=== PATIENT | male | born 1940 | race Caucasian/White ===

== ENCOUNTER 2017-03-10 16:36 | Inpatient (IN) | payer MEDICARE ==
[~2017-03-10] VITALS: Ht 185.4 cm; Wt 116.1 kg
[2017-03-10] VITALS (7 sets, daily range): BP systolic 128–150; BP diastolic 42–73
[~2017-03-10 16:36] MED LIST: ALDACTONE25 M1 PO; AMIODARONE200 MG PO; APRESOLINE25 MG PO; ASPIR-LOW81 MG PO; ASPIRIN81 M1 PO; BACTRIM DS 8001 TA1 PO; BUMETANIDE2 MG PO; BUMEX2 MG PO; CARVEDILOL12.5 MG PO; CEFEPIME2 GM/100 M IV; CIPRO500 MG PO; CLINDAMYCIN150 MG PO; COREG25 MG PO; COZAAR25 MG PO; DIGOXIN0.125 MG PO; DOXYCYCLINE100 M3 PO; Duoneb 3ML 3 MG/3 ML INH; FERROUS SULFAT324 M2 PO; FISH OIL1000 MG PO; FLAGYL500 MG PO; FORTAZ2 G1 IV; FUROSEMIDE20 MG PO; GLIPIZIDE XL10 M1 PO; GLIPIZIDE10 M2 PO; HUMALOG 751 UNIT/0.0 SC; HUMALOG MIX 75/23 ML SC; HUMALOG100 U/ML SC; HYDROCODONE BIT1 T11 PO; IMDUR ER30 MG PO; IMDUR SA30 MG PO; INVANZ1 GM/50 ML IV; IRON325 M1 PO; KEFTAB500 MG PO; LASIX40 MG PO; LEVAQUIN500 M2 PO; LEVEMIR100 U/ML SC; LEVOTHYROXIN0.088 M1 PO; LOMOTIL 0.025 M1 TA1 PO; LOMOTIL 0.025 M1 TAB PO; LOSARTAN POTASS25 MG PO; Lopressor25 MG PO; MASON25 MG PO; MERREM IV1 GM IV; MUCINEX ER600 MG PO; MYLICON,MYLANTA40 MG PO; NEURONTIN300 MG PO; NORCO 5-325 TA1 EACH PO; NOVALOG; NOVOLOG 70/30 M10 ML SC; NOVOLOG FLEX100 U/ML SC; NOVOLOG MI100 UNIT/1 SC; NOVOLOG MI100 UNIT/1 SQ; NOVOLOG MI100 UNIT/2 SQ; NOVOLOG1 UNIT/0.0 SL; OXYGEN NAS; PIPERACILLIN IV; PLAVIX75 M1 PO; PLAVIX75 MG PO; PRAVACHOL40 MG PO; PREDNISONE10 MG PO; PROTONIX40 MG PO; PULMICORT RESP0.5 MG INH; SILVADENE,SSD C50 GM T; SYNTHROID RP0.088 MG PO; Synthroid,Levo50 MCG PO; Synthroid,Levo88 MCG PO; TAZOBACTAM IV; VENTOLIN0.09 MG/AC INH; VITAMIN B12 PO; VITAMIN B121000 MC1 PO; VITAMIN D2400 IU PO; VITAMIN D31000 I1 PO; VITAMIN D50000 I1 PO; XARELTO STARTER20 MG PO; ZOFRAN ODT4 MG SL; ZOSYN 3.373.375 GM/5 IV; ZOSYN 50 ML50 ML IV
[2017-03-10 17:49] LABS: IRON 86 ug/dL (65-175)
[2017-03-10 17:51] LABS: IRON SATURATION 28 %; UIBC 218 ug/dL (110-410)
[2017-03-10] MEDS ORDERED: LINEZOLID600 MG PO (18:44)
[2017-03-10] MEDS ORDERED: PRAVACHOL40 MG PO (18:45)
[2017-03-10] MEDS ORDERED: SYMBICORT1 AE1 INH (18:46)
[2017-03-10] MEDS ORDERED: GLIPIZIDE ER10 M1 PO (18:57)
[2017-03-10 19:58] LABS: FERRITIN 172.5 ng/mL (22.0-322.0); FOLIC ACID 13.16 ng/mL (>5.38)
[2017-03-10] MEDS ORDERED: DUONEB 3 MG/3 ML3 M1 INH (23:11)
[2017-03-11] VITALS (9 sets, daily range): BP systolic 146–179; BP diastolic 63–81
[2017-03-11 00:56] LABS: CKMB 4.1 ng/ml (0.5-3.6); TROPONIN I 0.016 ng/ml (<0.045)
[2017-03-11 06:47] LABS: BASO % 0.3 % (0.0-1.0); EOS # 0.1 10*3/uL (0.0-0.4); EOS % 0.7 % (1.0-4.0); HEMATOCRIT 27.6 % (42.0-52.0); LYMPH # 0.9 10*3/uL (1.3-4.4); LYMPH % 9.2 % (27.0-41.0); MEAN CORPUSCULAR HGB CONC 33.7 g/dl (33.0-37.0); MEAN PLATELET VOLUME 9.8 fl (9.6-12.3); MONO # 1.1 10*3/uL (0.1-1.0); MONO % 10.6 % (3.0-9.0); NEUT # 7.9 10*3/uL (2.3-7.9); NEUT % 78.9 % (47.0-73.0); NUCLEATED RED BLOOD CELL 0.2 % (0.0-0.0); PLATELET COUNT AUTOMATED 178 10*3/uL (130-400); RED BLOOD COUNT 3.21 10*6/uL (4.50-5.90); WHITE BLOOD COUNT 10.1 10*3/uL (4.8-10.8)
[2017-03-11 06:50] LABS: HEMOGLOBIN 9.3 g/dl (14.0-18.0)
[2017-03-11 07:00] LABS: CKMB 3.2 ng/ml (0.5-3.6); CPK 59 U/L (39-308)
[2017-03-11 07:01] LABS: TROPONIN I < 0.015 ng/ml (<0.045)
[2017-03-11 07:29] LABS: ALBUMIN 3.1 gm/dl (3.1-4.5); BILIRUBIN, TOTAL 1.3 mg/dl (0.2-1.0); MAGNESIUM 2.3 mg/dL (1.5-2.1); PHOSPHOROUS 3.9 mg/dL (2.5-4.9); POTASSIUM 4.9 mmol/L (3.5-5.1)
[2017-03-11 07:31] LABS: INTERNATIONAL NORM RATIO 1.1 (2.0-3.5); PROTHROMBIN TIME 12.1 SECONDS (9.0-12.4)
[2017-03-11 07:36] LABS: FREE T4 1.05 ng/dl (0.76-1.46)
[2017-03-11 07:38] LABS: THYROID STIM HORMONE (HS) 4.9 uIU/ml (0.358-4.75)
[2017-03-11 07:42] LABS: VITAMIN D, 25-HYDROXY 22.2 ng/mL (30-100)
[2017-03-11 07:43] LABS: FOLIC ACID 9.72 ng/mL (>5.38)
[2017-03-11 12:12] LABS: CKMB 3.1 ng/ml (0.5-3.6)
[2017-03-11 12:16] LABS: TROPONIN I 0.016 ng/ml (<0.045)
[2017-03-11] MEDS ORDERED: D-1000 185 MG-11 TAB PO (12:53)
== END 2017-03-11 13:53 | disposition home or self-care (01) | DRG 291 ==
LOC: ED 16:36 → EDHOLD 17:29 → 5E 17:29
PROVIDERS: Emergency Medicine; Student in an Organized Health Care Education/Training Program
PROC: 30233N1 Transfusion of Nonautologous Red Blood Cells into Peripheral Vein, Percutaneous Approach (ICD-10-PCS; principal; 2017-03-10)
DX: I13.0 Hypertensive heart and chronic kidney disease with heart failure and stage 1 through stage 4 chronic kidney disease, or unspecified chronic kidney disease (principal); E43 Unspecified severe protein-calorie malnutrition; E11.22 Type 2 diabetes mellitus with diabetic chronic kidney disease; E11.51 Type 2 diabetes mellitus with diabetic peripheral angiopathy without gangrene; L97.909 Non-pressure chronic ulcer of unspecified part of unspecified lower leg with unspecified severity; D63.1 Anemia in chronic kidney disease; E11.622 Type 2 diabetes mellitus with other skin ulcer; N18.3 Chronic kidney disease, stage 3 (moderate); E78.5 Hyperlipidemia, unspecified; I50.9 Heart failure, unspecified; I25.10 Atherosclerotic heart disease of native coronary artery without angina pectoris; E03.9 Hypothyroidism, unspecified; K21.9 Gastro-esophageal reflux disease without esophagitis; J44.9 Chronic obstructive pulmonary disease, unspecified; Z86.718 Personal history of other venous thrombosis and embolism; Z68.33 Body mass index [BMI] 33.0-33.9, adult; Z95.1 Presence of aortocoronary bypass graft; Z95.818 Presence of other cardiac implants and grafts; Z87.891 Personal history of nicotine dependence; Z80.0 Family history of malignant neoplasm of digestive organs; Z82.49 Family history of ischemic heart disease and other diseases of the circulatory system; Z80.3 Family history of malignant neoplasm of breast; Z91.013 Allergy to seafood; Z91.041 Radiographic dye allergy status; Z88.7 Allergy status to serum and vaccine; Z79.899 Other long term (current) drug therapy; Z79.82 Long term (current) use of aspirin

== ENCOUNTER 2017-03-30 21:51 | Emergency (ER) | payer MEDICARE ==
[~2017-03-30] VITALS: Ht 182.8 cm; Wt 116.1 kg
--- NOTE | ~2017-03-30 | EKG ---
[place], [place] ELECTROCARDIOGRAM REPORT NAME: MARIN KRUGER UNIT #: [id number] ROOM: DOCTOR: COLETTE KHANNA MD BIRTHDATE: [birth year] DOS: 03/30/2017 TIME: 22:18 p.m. Normal sinus rhythm at rate of 88 with occasional PVCs, first-degree AV block, nonspecific intraventricular conduction delay, nonspecific ST and T-wave changes, abnormal electrocardiogram. COLETTE KHANNA MD CM:EKGRPT:ELECTROCARDIOGRAM REPORT [id number] COLETTE KHANNA MD
[2017-03-30 21:51] VITALS: BP 160/82
[~2017-03-30 21:51] MED LIST changes: +D-1000 185 MG-11 TAB PO; +DUONEB 3 MG/3 ML3 M1 INH; +GLIPIZIDE ER10 M1 PO; +LINEZOLID600 MG PO; +SYMBICORT1 AE1 INH
[2017-03-30 22:21] LABS: BASO # 0.1 10*3/uL (0.0-0.1); BASO % 0.8 % (0.0-1.0); EOS # 0.3 10*3/uL (0.0-0.4); EOS % 2.5 % (1.0-4.0); HEMATOCRIT 30.2 % (42.0-52.0); HEMOGLOBIN 9.5 g/dl (14.0-18.0); IG # 0.1 10*3/uL (0.0-0.1); LYMPH # 1.2 10*3/uL (1.3-4.4); LYMPH % 11.6 % (27.0-41.0); MEAN CELL VOLUME 88.6 fl (80.0-94.0); MEAN CORPUSCULAR HGB 27.9 pg (27.0-31.0); MEAN CORPUSCULAR HGB CONC 31.5 g/dl (33.0-37.0); MEAN PLATELET VOLUME 8.6 fl (9.6-12.3); MONO # 1.1 10*3/uL (0.1-1.0); MONO % 10.9 % (3.0-9.0); NEUT # 7.3 10*3/uL (2.3-7.9); NEUT % 73.7 % (47.0-73.0); PLATELET COUNT AUTOMATED 321 10*3/uL (130-400); RED BLOOD COUNT 3.41 10*6/uL (4.50-5.90); RED CELL DISTRI WIDTH 17.2 % (0-14.5)
[2017-03-30 22:38] LABS: ALBUMIN 3.2 gm/dl (3.1-4.5); BILIRUBIN, TOTAL 0.4 mg/dl (0.2-1.0); MAGNESIUM 2.1 mg/dL (1.5-2.1); POTASSIUM 4.4 mmol/L (3.5-5.1); TOTAL PROTEIN 7.8 gm/dL (6.4-8.2)
[2017-03-30 22:39] LABS: TROPONIN I 0.017 ng/ml (<0.045)
[2017-03-31] MEDS ORDERED: MIRALAX POWDER255 G1 PO (00:29)
== END 2017-03-31 00:59 | disposition home or self-care (01) ==
LOC: ED 21:51
PROVIDERS: Emergency Medicine Emergency Medical Services
DX: K59.00 Constipation, unspecified (principal); K80.81 Other cholelithiasis with obstruction; I25.10 Atherosclerotic heart disease of native coronary artery without angina pectoris; I73.9 Peripheral vascular disease, unspecified; I50.9 Heart failure, unspecified; K21.9 Gastro-esophageal reflux disease without esophagitis; E78.5 Hyperlipidemia, unspecified; Z86.718 Personal history of other venous thrombosis and embolism; E03.9 Hypothyroidism, unspecified; E11.65 Type 2 diabetes mellitus with hyperglycemia; I12.9 Hypertensive chronic kidney disease with stage 1 through stage 4 chronic kidney disease, or unspecified chronic kidney disease; N18.3 Chronic kidney disease, stage 3 (moderate); M86.671 Other chronic osteomyelitis, right ankle and foot; J44.9 Chronic obstructive pulmonary disease, unspecified; E11.622 Type 2 diabetes mellitus with other skin ulcer; L97.909 Non-pressure chronic ulcer of unspecified part of unspecified lower leg with unspecified severity; Z88.7 Allergy status to serum and vaccine; Z91.013 Allergy to seafood; Z79.899 Other long term (current) drug therapy; Z79.82 Long term (current) use of aspirin

== ENCOUNTER → 2017-10-29 | Outpatient (CLI) | payer MEDICARE ==
[~2017-10-29] MED LIST changes: +MIRALAX POWDER255 G1 PO
== END ==
LOC: RAD 12:29
DX: J90 Pleural effusion, not elsewhere classified (principal); E11.9 Type 2 diabetes mellitus without complications; J40 Bronchitis, not specified as acute or chronic; J44.9 Chronic obstructive pulmonary disease, unspecified; Z95.1 Presence of aortocoronary bypass graft

== ENCOUNTER 2017-12-01 11:19 | Inpatient (IN) | payer MEDICARE ==
[~2017-12-01] VITALS: Ht 185.4 cm; Wt 108.0 kg
--- NOTE | ~2017-12-01 | PR ---
[place], [place] PROGRESS NOTE NAME: [facility]IN [facility]UGER [id number] UNIT #: [id number] ROOM: 503 DOCTOR: DERICK AGEE DO BIRTHDATE: [birth year] DOS: 12/03/2017 SUBJECTIVE: The patient was seen and examined at bedside. The patient was sitting upright in bedside chair. The patient had some concerns this morning considering the new findings on CT that showed some possible air in the abdomen. Additionally the transthoracic echo yesterday indicated there was a possible endocarditis and that a GIANCARLO would be required by Cardiology at some point. The patient has concerns about his ability to recover from the multiple comorbid conditions that are going on. However, the patient remains enthusiastic that he is in good hands and that he will continue to improve. No new complaints this morning. The patient continues to be stable and has no complaint of worsening shortness of breath or productive cough. Also, the patient has no complaints of chest pain or fever or chills. OBJECTIVE: VITAL SIGNS: Temperature is 97.4, pulse is 94, respirations 20, blood pressure 131/68, pulse ox is 99% on 2 liters nasal cannula. LABS: White count 22.6, hemoglobin 7.9, hematocrit 25.1, platelets count 400. Sodium 133, potassium 5.3, chloride 102, carbon dioxide 20, BUN 70, creatinine 2.1, glucose is 261, calcium 8.3. GENERAL APPEARANCE: The patient is alert and oriented x 3, in no acute distress. HEENT: Eyes are clear. No injection. Normocephalic, atraumatic head mucous membranes. NECK: Supple, nontender. CARDIAC: S1, S2 noted. LUNGS: No rales. Scattered expiratory wheezes were noted. ABDOMEN: Soft, nontender, moderately obese. Bowel sounds are present. EXTREMITIES: The patient's right leg is in a boot. Otherwise, no lesions were noted. SKIN: No erythema or edema noted. Unable to visualize the diabetic wound in his right lower extremity. MUSCULOSKELETAL: Without any gross deformities. NEUROLOGIC: Cranial nerves are grossly intact. IMPRESSION: 1. High suspicion for endocarditis. Cardiology is following. GIANCARLO is recommended. 2. Chronic obstructive pulmonary disease with acute bronchitis, stable and improving. 3. Positive blood cultures, Gram-positive cocci. 4. Tobacco abuse. 5. Uncontrolled diabetes. 6. Obstructive sleep apnea. 7. Anemia. 8. Decreased kidney function, likely acute on chronic. TREATMENT AND PLAN: As stated above, GIANCARLO is recommended along with the CT of the abdomen to assess for free air. No change in current respiratory therapy. Continue the vancomycin, ampicillin, Rocephin, IV fluids, Dulera, Solu-Medrol, [place], [place] PROGRESS NOTE NAME: MARNI KRUGER UNIT #: [id number] ROOM: [facility] DOCTOR: DERICK AGEE DO BIRTHDATE: [birth year] Willy jarrett 4. We will continue to follow this patient. DERICK AGEE DO SREEDHAR CALLE MD CM:PNSUSAN [id number] DERICK AGEE DO 12/03/17 1352 interface
--- NOTE | ~2017-12-01 | PR ---
[place], [place] PROGRESS NOTE [facility]: [id number] UNIT #: [id number] ROOM: 503 DOCTOR: LUC SYED MD,SREEDHAR BIRTHDATE: [birth year] DOS: 12/04/2017 ADDENDUM The patient was seen independently today with qnhr-ss-mffs encounter, history was confirmed. Physical examination was performed. The assessment was personally completed for today's visit. All the labs available reviewed. The management and changes were personally done for patient as needed. Currently, the patient has been noted n.p.o. for this patient for the planned transesophageal echocardiogram to be done today to rule out endocarditis. Many blood culture, which were done, 7, 8, 9 and 10 were all noted abnormal with Gram-positive cocci in clusters and previous identification noted in some of the cultures as MRSA. The other identification remains in progress. The patient has been noted reduction in symptoms of shortness of breath. Denies symptoms of chest pain. Cough has been noted intermittently. Denies any symptoms of chest pain or any abdominal pain at the present time. OBJECTIVE: VITAL SIGNS: Reviewed for the patient was noted essentially normal temperature, respiratory rate 20, heart rate 91, blood pressure 132/65-137/65. Pulse oxygen saturation noted on 3 liters at 100% saturation. LUNGS: Noted with decreased breath sounds, scattered expiratory wheezing without any crackles. ABDOMEN: Soft, nontender. Mild to moderate obesity. EXTREMITY: Noted chronic changes as well. The blood culture as stated on , and for this patient were all noted positive with MRSA. LABORATORY DATA: CBC of 12/04/2017, WBC count 14.4, hemoglobin 7.6, hematocrit 26.4, platelet count was normal. The BMP on 12/04, BUN 84, creatinine 2.28, glucose 433. Sodium 129, potassium 6.9. IMPRESSION: 1. The patient who has been noted with endocarditis with MRSA, rule out vegetation further assessment for the patient to be done by the cardiology services. 2. The patient with mediastinal lymphadenopathy, significance unknown. There was no evidence of septic emboli noted on CT scan of the chest. CT scan of abdomen and pelvis yesterday did exclude any perforation of the hollow viscus as well. 3. Ongoing acute exacerbation of COPD. 4. Hyperglycemia related to corticosteroids. 5. Hyperglycemia. 6. Acute on chronic kidney injury would be considered multifactorial. PLAN OF TREATMENT: Dose of the corticosteroids at this time would be decreased that would also result in improvement in the hyperglycemia. Continuation of the bronchodilator with oxygen supplementation. Monitoring management for endocarditis per Infectious Disease human resource management instructor. Supportive care, other therapy, plan of management, proceed with the transesophageal echo to assess for possibility of endocarditis. Other usual care, plan of management [place], [place] PROGRESS NOTE NAME: MARIN KRUGER UNIT #: [id number] ROOM: [facility] DOCTOR: LUC SYED MD,SREEDHAR BIRTHDATE: [birth year] and care. Supportive therapy, other plan of management as well. The dose of Solu-Medrol has been changed for the patient to 40 mg to daily dose. Continue aggressively manage the patient's hyperglycemia with uncontrolled diabetes, which is as well. Continue other supportive therapy, plan of management depending on the echocardiogram results, additional management change from pulmonary standpoint could be done as necessary. SREEDHAR CALLE MD CM:CAMPBELL [id number] SREEDHAR SYED MD 12/04/17 1732 interface
--- NOTE | ~2017-12-01 | PR ---
[place], [place] PROGRESS NOTE NAME: [facility]IN KRUGER [facility] [id number] UNIT #: [id number] ROOM: [facility] DOCTOR: LUC SYED MD,SREEDHAR BIRTHDATE: [birth year] DOS: 12/05/2017 PULMONARY ADDENDUM PROGRESS NOTE SUBJECTIVE: The patient is seen today with [id number] encounter. History was confirmed from the patient personally. Physical examination performed. Assessment for this patient personally made and recommendation of change in treatment personally done for today's visit as well. The note done by the medical assistant prn was approved as well. The patient was noted, at this time, comfortable. He was planned for transfer to [facility] on further patient's request. However, the transfer has been delayed because of lack of services at this time available because of the inclement weather. The patient has been currently treated in the hospital for ongoing severe bacteremia. Transesophageal echocardiogram was completed for this patient that was essentially noted negative for endocarditis. OBJECTIVE: VITAL SIGNS: For the patient which were recorded this morning shows normal temperature, respiratory rate 18, heart rate 84, blood pressure 147/67. The pulse oxygen saturation on 2.5 liter nasal cannula 98% saturation. LUNGS: Noted without any wheeze or crackle at the present time. ABDOMEN: Soft, nontender. Moderate obesity. EXTREMITIES: Noted with significant edema. Skin changes were also noted. CENTRAL NERVOUS SYSTEM: Intact. MUSCULOSKELETAL: No deformities. LABORATORY DATA: CBC of the patient that was done this morning, WBC count 13.5, hemoglobin 8.1, hematocrit 25.5, platelet count 339,000, 97% segmented neutrophils. BMP of the patient this morning, glucose 645, BUN 90, creatinine 2.61. Sodium 126, potassium of 6.2, CO2 of 19. Blood culture from the of this month for the patient was noted with Gram-positive cocci in clusters in both aerobic bottles. The anaerobic bottle was noted without any abnormal growth. Vancomycin trough level for the patient noted at 25.2. IMPRESSION: 1. The patient has been currently noted with findings of acute exacerbation of chronic obstructive pulmonary disease, though which is improving gradually. 2. Severe hyperglycemia, worsened with the use of the corticosteroids as well. 3. Acute kidney injury. The patient has severe hyperkalemia and metabolic acidosis. 4. Elevation of anion gap for this patient with diabetic ketoacidosis suspected as well. 5. Bacteremia. Exact source for the patient is not clear, may be related originating from the skin as a possibility. There was no evidence of acute pneumonia. PLAN OF TREATMENT: Solu-Medrol at this time will be discontinued because of the absence of wheezing. The patient has been planned for transfer to the intensive care unit and will be started on insulin for diabetic ketoacidosis. The patient will require assessment by the Nephrology Service because of the current acute [place], [place] PROGRESS NOTE NAME: MARIN KRUGER UNIT #: [id number] ROOM: [facility] DOCTOR: LUC SYED MD,SREEDHAR BIRTHDATE: [birth year] kidney injury. Bronchodilator for the patient will be continued. If the patient does develop further significant wheezing, certainly, lower dose of Solu-Medrol could be resumed at that time. All other plan and medical management. The medical management of hyperkalemia has already been started by the primary care attending. Continuation of vancomycin with adjustment of the dose will be needed for this patient for the medical management of endocarditis. The patient has already been assessed and managed by the Infectious Disease Services as well. Continue oxygen supplementation to maintain a saturation of 92% or greater. SREEDHAR CALLE MD CM:PNTRANS [id number] SREEDHAR SYED MD 12/06/17 0023 interface
--- NOTE | ~2017-12-01 | PR ---
[place], [place] PROGRESS NOTE NAME: MARIN KRUGER [facility] #: [id number] UNIT #: [id number] ROOM: 503 DOCTOR: LUC SYED MD,SREEDHAR BIRTHDATE: [birth year] DOS: 12/03/2017 SUBJECTIVE: The patient was seen today independent with oagi-ny-toms encounter. History was confirmed. Physical examination was personally performed. All the available labs were reviewed for assessment and management of the patient and any recommendation of treatment changes for the patient were personally done for today's visit. Note done by the medical billing coder was approved as well. The patient still noted some symptoms of shortness of breath at this time with cough. Denies any symptoms of chest pain. Denies any abdominal pain. The patient denies symptoms of hemoptysis. OBJECTIVE: VITAL SIGNS: For the patient was essentially noted afebrile status, respiratory rate 20 this morning, heart rate 94, blood pressure 131/68. Pulse oxygen saturation on 2 liters 98% saturation. HEENT: Head was atraumatic. Eye nonicterus. NECK: Supple. CARDIOVASCULAR: S1, S2 audible. LUNGS: Noted [id number]-gs-glicrvpa decreased breath sounds in the lungs bilaterally. ABDOMEN: Soft with moderate obesity. Bowel sounds present. EXTREMITIES: Without any acute edema. CENTRAL NERVOUS SYSTEM: The patient was noted without any gross focal deficit. SKIN: Visible skin. No lesions or rashes. MUSCULOSKELETAL: The patient was noted without any acute deformities. LABORATORY DATA: CBC this morning, WBC count was elevated at 22.6, significant increase from yesterday, hemoglobin 7.9, hematocrit 25.1, platelet count 400,000. BMP this morning, glucose of 261, BUN 70, creatinine 2.19, sodium 133, potassium of 5.3. CT scan of the chest that I ordered was completed this morning, was personally reviewed on the PACS images. The mediastinal window for the patient limited finding because of lack of IV contrast. However, yzvey-ze-zlzefets lymphadenopathy noted in the mediastinum with the short dimension lymph node noted in the precarinal area as 1.8 cm in size. Bilateral pleural fluid was seen. The radiologist's description was noted with possibility of small amount of free air in the abdomen, cannot be excluded with this current limited upper portion of the abdominal examination, which was included with current CT scan of the chest. Further assessment of the CT scan of the abdomen and pelvis was advised. I have also reviewed the CT scan of the chest for the patient on 01/03/2009, shows mild lymphadenopathy, certainly current lymphadenopathy, which has been noted on the CT scan of the chest with increase in the size since 2008 comparison. Echocardiogram of 12/02/2017, which has been dictated by Dr. Munoz for this patient was noted with severe reduction of left ventricular ejection fraction 20%-25%, evidence of moderate pulmonary hypertension, mitral valve, annuloplasty ring was described in place. Cannot rule out mitral valve vegetation. The blood culture, which was done was noted as a gram-positive cocci in cluster in four bottles on 12/02/2017. Cultures done on 12/01/2017 for this patient, one of them was noted with gram-positive cocci in clusters and the other one in pairs. Final results remain pending. IMPRESSION: [facility] [place], [place] PROGRESS NOTE NAME: MARIN KRUGER UNIT #: [id number] ROOM: [facility] DOCTOR: SREEDHAR HERNANDEZ MD BIRTHDATE: [birth year] 1. The patient has been currently noted with ongoing exacerbation of chronic obstructive pulmonary disease with fluid overload, congestive heart failure. 2. Acute kidney injury was also suspected. 3. Possibility of endocarditis would be considered for the patient with multiple blood cultures noted positive gram-positive cocci in clusters, most of them except one bottle was noted with gram-positive cocci in pairs. 4. Rule out any free air in the abdomen as well as ____ debility. 6. Moderate obesity as well with history of coronary artery disease as well. 7. Severe cardiomyopathy with decreased left ventricular ejection fraction was also noted with cardiomyopathy. 8. Pulmonary hypertension was noted on echocardiogram, would be considered as a class 2 related to the left ventricular problem and heart disease. 9. Lymphadenopathy in mediastinum at this time, nonspecific, etiology is unclear. The lymphadenopathy could be seen in people with congestive heart failure. 10. Overall severe debility with previous history of nicotine abuse. 11. Suspected obstructive sleep apnea disorder, has not been further assessed, the patient did not have sleep study completed, which was ordered previously. PLAN OF TREATMENT: At this time, I proceed with the CT scan of the abdomen and pelvis for further assessment. The antibiotic therapy to be continued definitively. The transesophageal echocardiogram will be done to ruling out endocarditis as source of infection was noted with this multiple blood cultures, abnormal bacteremia. Continue current dose of corticosteroids. Continue bronchodilators and oxygen supplementation, treatment, plan of management. Usual care, other supportive therapy, plan of management and care. SREEDHAR CALLE MD CM:PNTRANS [id number] SREEDHAR SYED MD 12/04/17 0039 interface
--- NOTE | ~2017-12-01 | PR ---
[place], [place] PROGRESS NOTE NAME[facility]: [id number] UN[facility] #: [id number] ROOM: [facility] DOCTOR: DERICK AGEE DO BIRTHDATE: [birth year] DOS: 12/05/2017 SUBJECTIVE: The patient was seen and examined while on ultrasound in the Radiology Department. The patient was receiving a lower extremity ultrasound. The patient was lying down in 30 degrees angle, in no acute distress. The patient reports that he was anxiously awaiting for transfer to [facility], but understood that there were some issues with availability of beds. The patient has no complaints at this time this morning. LABORATORY DATA: White count 13.5, hemoglobin 8.1, hematocrit 25.5. Chemistries: Sodium 126, potassium 6.2, chloride 93, carbon dioxide 19, BUN 99, creatinine 2.6, GFR is 24, glucose 645. No echocardiogram evidence of endocarditis. However, the study was difficult to assess. Blood cultures from the remain negative at this time. Foot CT shows extensive osteomyelitis, areas that are new versus areas that have old disease. OBJECTIVE: VITAL SIGNS: Temperature 97.7, pulse is 72, respirations 18, blood pressure 149/78, pulse ox is 100% on 2 liters nasal cannula. GENERAL: The patient is alert and oriented x 3, in no acute distress. HEENT: Eyes are clear. No injection. Nares are patent. Oral mucosa is moist and clear. NECK: Supple, nontender. CARDIOVASCULAR: S1 and S2 noted. PULMONARY: Lungs are clear to auscultation. ABDOMEN: Soft and nontender. EXTREMITIES: Right leg is wrapped in surgical wrapping. Left leg shows no edema, no erythema, no lesions. IMPRESSION: 1. Severe sepsis with bacteremia septicemia. 2. Osteomyelitis. 3. Suspected endocarditis. 4. Methicillin-resistant Staphylococcus aureus blood infection. 5. Ongoing acute exacerbation of chronic obstructive pulmonary disease. 6. Diabetic ketoacidosis PLAN OF CARE: From respiratory standpoint, the patient's lungs are stable. Continue with respiratory therapy including antibiotics, vancomycin and Kefzol, Dulera, Solu-Medrol, guanfacine and DuoNeb. The patient is critically ill. The patient was transferred to the ICU for DKA treatment. A bed in [facility] is pending. Continue with antibiotics as directed by ID. We will continue to follow this patient. DERICK AGEE DO [place], [place] PROGRESS NOTE NAME: MARIN KRUGER UNIT #: [id number] ROOM: [facility] DOCTOR: DERICK AGEE DO BIRTHDATE: [birth year] SREEDHAR CALLE MD CM:CAMPBELL [id number] DERICK AGEE DO 12/05/17 4519 interface
--- NOTE | ~2017-12-01 | EKG ---
[place], [place] ELECTROCARDIOGRAM REPORT NAME: MARIN KRUGER UNIT #: [id number] ROOM: 503 DOCTOR: LUC SYED MD,SREEDHAR BIRTHDATE: [birth year] DOS: 12/01/2017 Electrocardiogram done on 12/01/2017 at 12:18 p.m. Normal sinus rhythm noted with heart rate of 89 beats per minute. PVCs were noted with questionable bigeminy. Poor R-wave progression was also noted in the chest leads. Rule out acute ischemia. SREEDHAR CALLE MD CM:EKGRPT:ELECTROCARDIOGRAM REPORT [id number] SREEDHAR SYED MD
--- NOTE | ~2017-12-01 | PR ---
[place], [place] PROGRESS NOTE NAME: MARIN KRUGER UNIT #: [id number] ROOM: [facility] DOCTOR: LUC SYED MD,SREEDHAR BIRTHDATE: [birth year] DOS: 12/08/2017 PULMONARY PROGRESS NOTE SUBJECTIVE: The patient was noted with increased lethargy this morning. He has been also noted with tachypnea. The patient was planned for transfer to [facility], but there was no available bed for the patient for the transfer to occur. He has not noted with any symptoms of chest pain or hemoptysis. The patient was not noted with symptoms of nausea, vomiting, or diarrhea. Lower extremity edema remains unchanged for the patient, appeared to be significant. This morning, the patient was seen sitting on the chair, arousal to vocal commands, answered some questions. His blood sugar was checked this morning and was noted as less than 50. He was given an amp of D50 and some orange juice, resulting in improvement in the hypoglycemia. OBJECTIVE: VITAL SIGNS: For the patient, which were recorded showed blood pressure was noted as 123/58 at 8:00 a.m., respiratory rate of 22, heart rate 80, temperature normal. The pulse oxygen saturation of the patient recorded on 3-liter nasal cannula was 98% saturation. HEENT: Moderate obesity. Head was atraumatic. Eyes nonicterus. CARDIOVASCULAR: S1, S2 audible. LUNGS: Noted with moderate decreased breath sounds, scattered occasional crackles. ABDOMEN: Soft, nontender. Bowel sounds present. EXTREMITIES: Without any acute edema. IMAGING STUDIES: Chest x-ray of the patient that was done this morning shows left lower lobe atelectasis, small pleural fluid, pulmonary venous congestion markings. LABORATORY DATA: Blood culture of the patient from 12/06/2017, one set was noted negative for any bacterial growth, the second set aerobic culture was noted with gram-positive cocci in clusters, but the second anaerobic bottle was negative. Arterial blood gas that I ordered for the patient was completed as well to assess his respiratory status and it showed pH of 7.33, pCO2 of 39, pO2 130. IMPRESSION: 1. The patient with persistent bacteremia with source most likely of osteomyelitis of the right foot. 2. Edema of the lower extremities, remains persistent. 3. The patient with acute kidney injury, which has been noted with gradual improvement. 4. The patient without any evidence of endocarditis, investigate the patient fully at this time with the transesophageal echocardiogram. 5. Change in mental status, multifactorial, secondary hypercarbia, metabolic acidosis and also result of the hypoglycemia. 6. Left pleural fluid and a small area of atelectasis. 7. Resolving acute exacerbation of chronic obstructive pulmonary disease. [place], [place] PROGRESS NOTE NAME: MARIN KRUGER UNIT #: [id number] ROOM: [facility] DOCTOR: SREEDHAR HERNANDEZ MD BIRTHDATE: [birth year] 8. Hyperglycemia of the patient has been improved significantly. PLAN OF MANAGEMENT: The patient will be transferred to [facility]. Discussed with the patient's spouse. Continue current antibiotic. The BiPAP was also ordered for the patient as tolerated, use to support respiratory failure. Continuation of the present therapy, medication management and plan. Lactic acid was obtained, which was noted as normal this morning. Hypoglycemia management per protocol. Other supportive therapy, plan of management and care and treatment. Case was discussed with Dr. Taylor who is the primary care attending of the patient for making the arrangements for the patient's transfer to [facility] for further followup. SREEDHAR CALLE MD CM:CAMPBELL 1604 [id number] SREEDHAR SYED MD 12/08/17 2322 interface
--- NOTE | ~2017-12-01 | PR ---
[place], [place] PROGRESS NOTE [facility]: [id number] UNIT #: [id number] ROOM: 503 DOCTOR: DERICK AGEE DO BIRTHDATE: [birth year] DOS: 12/04/2017 SUBJECTIVE: The patient was seen and examined at bedside. The patient was sitting in a chair at the side of his bed upright, in no acute distress. The patient is expressing his frustration with the multitude of health issues that are going on; however, the patient continues to agree to the current treatment plan, has no new complaints this morning, has specifically no complaints of chest pain, shortness of breath, cough, wheezing. OBJECTIVE: VITAL SIGNS: Temperature 97.2, pulse is 84, respirations 18, blood pressure 137/63, pulse ox is 100% on 3 liters nasal cannula. HEENT: Eyes are clear. No injection. No drainage. Nares are patent. Mucous membranes are moist. GENERAL APPEARANCE: The patient is alert and oriented x 3, in no acute distress. NECK: Supple, nontender. RESPIRATORY: Clear to auscultation. No wheezes, rales or rhonchi. CARDIOVASCULAR: S1 and S2 noted.: Regular rate and rhythm. No murmurs, gallops or rubs. ABDOMEN: Soft and nontender. Positive bowel signs. EXTREMITIES: Right lower extremity is wrapped in an Unna boot. The left leg shows mild edema with no erythema, cyanosis, clubbing. NEUROLOGIC: Negative focal deficits. SKIN: Negative for erythema or rash in the areas that are exposed. Again, the right lower leg is wrapped in surgical wrapping. LABORATORY DATA: Cultures from 12/03/2017 were positive for gram-positive cocci in clusters. Cultures were redrawn this morning. Cultures are pending. CT scan yesterday of the abdomen and pelvis showed no free air in the abdomen, however, did show a hernia with loops of bowel that have herniated into the hernia without incarceration or strangulation, also severe spinal stenosis was noted with a followup MRI of lumbar spine recommended at the L3-L4, L4-L5 space. IMPRESSION: 1. Ongoing exacerbation of chronic obstructive pulmonary disease with fluid overload and congestive heart failure, status improving. 2. Acute kidney injury. 3. Endocarditis. The patient is scheduled for a GIANCARLO to confirm vegetations on the valves. The patient has had multiple blood cultures come back positive for methicillin-resistant Staphylococcus aureus. Repeat cultures from today are pending. 4. No free air was appreciated on the CT abdomen and pelvis compared to the CT of chest. 5. Moderate obesity. 6. Severe cardiomyopathy with decreased left ventricular ejection fraction. 7. Pulmonary hypertension. 8. Lymphadenopathy. 9. Severe debility. 10. Nicotine abuse. [place], [place] PROGRESS NOTE NAME: MARIN KRUGER UNIT #: [id number] ROOM: [facility] DOCTOR: DERICK AGEE DO BIRTHDATE: [birth year] 11. Suspected obstructive sleep apnea. TREATMENT PLAN: At this time, continue with current antibiotics. ID is following. The patient to have GIANCARLO today to confirm the suspected endocarditis. The patient has been refusing to allow people to address his wound in his right lower extremity. Primary team is discussing patient with plans to transfer to other facility for further care if he continues to refuse to allow us to treat his osteomyelitis. From a pulmonary standpoint, the patient is stable, continue current plan of bronchodilators, oxygen supplementation, steroids. We will continue to follow. DERICK AGEE, SREEDHAR CALLE MD CM:PNTRANS [id number] DERICK AGEE DO 12/04/17 211 interface
--- NOTE | ~2017-12-01 | PR ---
[place], [place] PROGRESS NOTE NAME: MARIN KRUGER UNIT #: [id number] ROOM: [facility] DOCTOR: SREEDHAR HERNANDEZ MD BIRTHDATE: [birth year] DOS: 12/07/2017 SUBJECTIVE: The patient remains in Intensive Care Unit. The patient's blood glucose at this time has been noted much controlled. Respiratory symptoms has been improving progressively. Denies symptoms of chest pain or any abdominal pain. OBJECTIVE: VITAL SIGNS: For the patient, which was recorded showed the temperature noted as normal. The respiratory rate of the patient recorded as 21, heart rate of 82, blood pressure 123/72. HEENT: Examination shows no acute change. NECK: Supple. CARDIOVASCULAR: S1, S2 is audible. LUNGS: The patient was noted without any wheezing or crackles at the present time. ABDOMEN: Soft. Moderate obesity. EXTREMITIES: Remains unchanged. LABORATORY DATA: CBC this morning, WBC count 15.8, hemoglobin 8.3, hematocrit 27.1, and platelet count were normal. The BMP of patient this morning, BUN 103 and creatinine 2.43. IMPRESSION: 1. The patient who has been noted with resolving acute exacerbation of chronic obstructive pulmonary disease. 2. Anemia. 3. Resolving acute kidney injury. 4. Bacteremia. The patient with gram-positive cocci. The culture of the 13 of this month was still noted with positive bacteremia. 5. Osteomyelitis of the foot. PLAN OF MANAGEMENT: Continue antibiotic therapy. Surgical consultation has been obtained for the patient yesterday. The patient was seen by ____. However, he was waiting for the patient for transfer to [facility] for further surgical intervention as necessary by his surgeon who has been known to the patient. In the meantime, continue the therapy, plan of management and care. [place], [place] PROGRESS NOTE NAME: MARIN KRUGER UNIT #: [id number] ROOM: [facility] DOCTOR: SREEDHAR HERNANDEZ MD BIRTHDATE: [birth year] SREEDHAR CALLE MD CM:PNTRANS [id number] SREEDHAR SYED MD 12/07/17 1704 interface
--- NOTE | ~2017-12-01 | CON ---
[place], [place] REPORT OF CONSULTATION NAME: [facility] [id number] UNIT #: [id number] ROOM: 503 DOCTOR: SREEDHAR HERNANDEZ MD BIRTHDATE: [birth year] DOS: 12/02/2017 CONSULTATION REQUESTED BY: Hospitalist Services. REASON FOR CONSULTATION: Assessment of symptoms of shortness of breath. HISTORY OF PRESENT ILLNESS: A 77-year-old white male known to me with past history of bronchial asthma, has been seen in the office, but not on regular basis. The patient presented to the Emergency Room on 12/01/2016. He reported symptoms of having increased shortness of breath, which has been occurring for the past few days. The symptoms started about 4-5 days ago. His symptoms noted to be gradually worsening, occurring with exertional activity. He does have symptoms of intermittent cough with whitish sputum expectoration to colored sputum at times. The patient denies any symptoms of chest pain or hemoptysis. He has been using his respiratory medications, short-acting bronchodilators quite often, not resulting in improvement of respiratory symptoms. He denies any symptoms of chest pain. He does have symptoms of wheezing at times as well. The patient denies symptoms of hemoptysis. REVIEW OF SYSTEMS: CONSTITUTIONAL SYMPTOMS: The patient was reporting symptoms of chills at home, but not sure about the fever. EYES: Denies any burning, redness, or tenderness. EARS, NOSE, AND THROAT SYMPTOMS: No earache or discharge. Denies sore throat, hoarseness, otalgia, postnasal drainage, or epistaxis. CARDIOVASCULAR SYSTEM: Denies angina pain, edema or pain of the lower extremities, or palpitations. GASTROINTESTINAL SYMPTOMS: Denies dysphagia, nausea, vomiting, diarrhea, abdominal pain, hematemesis, melena, or hematochezia. SKIN: Denies lesions or rashes at this time. The patient has chronic wounds to the lower extremities, which have been managed by Wound crime specialist and stated they have been healing. CENTRAL NERVOUS SYSTEM: Denies dizziness, headache, diplopia, syncopal episode, or seizure activity. The remaining systems were reviewed, they were noted all negative. PAST MEDICAL HISTORY: Known as: 1. Centrilobular emphysema. 2. History of moderate obesity. 3. Suspected diagnosis of obstructive sleep apnea disorder, but the patient has not had any diagnostic sleep study completed, which was ordered previously. 4. History of type 2 diabetes mellitus. 5. History of essential hypertension. 6. History of coronary artery disease. 7. Peripheral wound previously, which was infected, diabetic foot with infection that has been treated with surgical intervention and prolonged antibiotics. 8. Peripheral vascular disease. 9. Chronic obesity. [place], [place] REPORT OF CONSULTATION NAME: MARIN KRUGER UNIT #: [id number] ROOM: [facility] DOCTOR: SREEDHAR HERNANDEZ MD BIRTHDATE: [birth year] 10. Type 2 diabetes mellitus as well. 11. Chronic moderate obesity. SOCIAL HISTORY: The patient is , has 2 children, and lives at home. Tobacco use was noted from the age of [age] years old, up to 3 packs of cigarettes per day, stated cessation of tobacco products in November 2014. PAST SURGICAL HISTORY: Reported as: 1. Coronary artery bypass grafting. 2. Inguinal hernia repair on the left side. 3. Right foot surgery. FAMILY HISTORY: The patient's father at the age of 5454 years old with complication of cancer. Mother at the age of 9696 years old from natural causes. MEDICATIONS: Currently administered medications were noted as use of vitamin D, metoprolol tartrate, simvastatin, aspirin, Plavix, Imdur, Dulera, hydralazine, IV Solu-Medrol 40 mg b.i.d., Mucinex p.r.n. use of 5 mL q.6 hours, ampicillin, Rocephin, vancomycin, and other p.r.n. medications administered. DRUG ALLERGIES: Noted as allergies to: 1. TETANUS TOXOID. 2. IODINE. 3. SHELLFISH. PHYSICAL EXAMINATION: GENERAL: This is a 77-year-old white male, currently comfortably lying in the bed without any distress. Height of 6 feet 1 inch, weight of 238 pounds, and BMI 31.4. VITAL SIGNS: Normal temperature, respiratory rate 18-20, heart rate of 52-108, and blood pressure of 144/71, 134/69. HEAD: Atraumatic. EYES: Nonicterus. EARS, NOSE, AND THROAT SYMPTOMS: Moderately reduced posterior pharyngeal space with high tongue base and crowding of soft tissue structures. NECK: Supple. CARDIOVASCULAR SYSTEM: S1, S2 is audible. LUNGS: Noted without any crackles. Scattered expiratory wheezing was present in the lungs. ABDOMEN: Soft, nontender. Moderate obesity. Bowel sounds present. EXTREMITIES: Noted to have chronic changes of the skin with some bandaging noted at the lower portion of the extremities as well. SKIN: Noted dryness of the skin. MUSCULOSKELETAL SYMPTOMS: Without any gross deformities. CENTRAL NERVOUS SYSTEM: Cranial nerves 2-12 intact. LABORATORY AND IMAGING DATA: The influenza A and B nasal washing antigen were noted as normal. Creatinine of 12/01/2017 was normal. CBC of 12/01/2017; WBC count 13.7, hemoglobin 8.1, hematocrit 26.0, and platelet count of 380,000. [place], [place] REPORT OF CONSULTATION NAME: MARIN KRUGER UNIT #: [id number] ROOM: [facility] [birth year] PT/PTT yesterday were noted INR of 1.2, PTT normal. CMP of 12/01/2017; BUN 71, creatinine 2.46, glucose 131, sodium 134, and potassium 5.2. ProBNP 35,000. CBC of this morning; WBC count normal, hemoglobin 7.6, hematocrit 24.0, and platelet count was normal. Blood culture, one set on 12/01/2017, which is the anaerobic bottle noted gram-positive cocci in pairs. Second aerobic bottle was pending. The second blood culture noted both positive aerobic and anaerobic growth reported with gram-positive cocci in pairs and clusters. Chest x-ray, 1-view that was done on admission was reviewed, does not show an acute pulmonary infiltration. IMPRESSION: 1. The patient, who has been currently admitted to the hospital seems to have acute exacerbation of chronic obstructive pulmonary disease, acute bronchitis. 2. Multiple blood cultures noted to be positive with 2 different Gram stains reported as gram-positive cocci in pairs, other with gram-positive cocci in pairs and clusters. Chest x-ray was not suggestive of any gross pulmonary infiltration at the present time with just simple 1-view chest x-ray. There has not been any MediPort or other foreign body present in the body as well. 3. Past history of nicotine abuse. 4. Suspected diagnosis of obstructive sleep apnea disorder. The patient did not have further assessment in the past. 5. Anemia with decreased hemoglobin and hematocrit at this time. Other than that, gastrointestinal bleeding or other reasons of hemodilution for this patient to be excluded. 6. The patient with increased BUN and creatinine, possibility of chronic kidney disease with superimposed acute kidney injury would be considered secondary to intravascular volume depletion or acute tubular necrosis. PLAN OF MANAGEMENT: The patient is currently getting the intravenous steroids that will be continued. He has been getting different antibiotics for the coverage of Enterococcus species because of gram-positive cocci in pairs or strep infection as well as the Staphylococcus aureus infection because of the clusters, which have been noted on Gram stain of the blood culture. The source of bacteremia remains completely unclear at this time. Definity rule out contamination as well. Bronchodilator will be given every 4 hours. The patient was encouraged to continue abstinence from tobacco use. Additional treatment changes will be recommended based on further progression of the illness. The patient will be ordered CT scan of the chest to rule out any nodule formation in the lungs because of current bacteremia. Suspicion of endocarditis certainly to be excluded. CT scan of the chest will be done without contrast. [place], [place] REPORT OF CONSULTATION NAME: MARIN KRUGER UNIT #: [id number] ROOM: [facility] DOCTOR: SREEDHAR HERNANDEZ MD BIRTHDATE: [birth year] SREEDHAR CALLE MD CM:CONSTR:REPORT OF CONSULTATION 1658 12/03/17 0957 interface
--- NOTE | ~2017-12-01 | PR ---
[place], [place] PROGRESS NOTE [id number] UNIT #: [id number] [place] [facility] [place]CTOR: LUC SYED MD,SREEDHAR BIRTHDATE: [birth year] DOS: 12/06/2017 SUBJECTIVE: The patient has been treated in Intensive Care Unit for severe uncontrolled hyperglycemia and diabetic ketoacidosis. He has been getting intravenous antibiotic for current bacteremia. The patient denies symptoms of chest pain. Currently, comfortably resting on the bed. He has not been noted symptoms of hemoptysis. He denies any pain of the lower extremity. Edema of the lower extremity remains persistent. The patient has not reported any itching. Denies any headache or diplopia. OBJECTIVE: VITAL SIGNS: For the patient which has been recorded is normal temperature, respiratory rate 18-20, heart rate 85, blood pressure 124/65-135/63. Pulse oxygen saturation of the patient on 3 liters nasal cannula is 99% saturation. HEENT: No acute change. NECK: Supple. CARDIOVASCULAR: S1, S2 audible. LUNGS: The patient was noted with moderate decreased breath sounds without any wheeze or crackles at the present time. ABDOMEN: Soft, nontender. Bowel sounds present. EXTREMITIES: The patient was noted without any acute edema. LABORATORY DATA: Peripheral vascular disease was noted with arterial Doppler that was completed yesterday. The blood culture from 11th of this month was noted with positive aerobic bottles for the patient, final results are pending. The blood culture for the patient all sets noted MRSA on 12/03/2017. BMP of patient that was done today, BUN 106, creatinine 2.53, glucose 238, sodium 129, potassium 5.9. IMPRESSION: 1. The patient with severe peripheral vascular disease with ongoing acute exacerbation of chronic obstructive pulmonary disease, acute tracheobronchitis, resolving severe hyperglycemia, resolution of the diabetic ketoacidosis. 2. Chronic edema of the lower extremities as well. 3. Resolving acute exacerbation of chronic obstructive pulmonary disease and bronchial asthma. 4. Suspect obstructive sleep apnea disorder as well. PLAN OF MANAGEMENT: Aggressively manage the bacteremia. The source might be considered for the patient from the suspected osteomyelitis from the foot as well. There was no evidence of endocarditis. Continue, in the meantime, bronchodilator, other treatment plan and management as previously. Usual care. Additional treatment changes to be made for the patient based on progression of the illness. The patient would like to be transferred to [facility] in [place], [place] upon availability of the bed for further continued care of his lower extremity issues. [place], [place] PROGRESS NOTE NAME: MARIN KRUGER UNIT #: [id number] [place]: [facility] DOCTOR: LUC SYED MD,SREEDHAR BIRTHDATE: [birth year] SREEDHAR CALLE MD CM:PNTRANS [id number] SREEDHAR SYED MD 12/07/17 0142 interface
[~2017-12-01 11:19] MED LIST changes: -GOOD NEIGHBOR150 MG PO; -HEPARIN SO5000 UNIT/ SC; -HUMALOG MI100 UNIT/1 SQ; -LEVOFLOXACIN500 MG PO; -MIRALAX17 GM PO; -OXYCODONE HCL10 M1 PO; -TOPROL XL25 MG PO; -VANCOMYCIN1.5 GM/500 IV; -Vitamin D PO
[2017-12-01 11:25] VITALS: BP 143/48
[2017-12-01] MEDS ORDERED: LEVOFLOXACIN500 MG PO (11:34)
[2017-12-01] MEDS ORDERED: OXYCODONE HCL10 M1 PO (11:35)
[2017-12-01] MEDS ORDERED: GOOD NEIGHBOR150 MG PO (11:35)
[2017-12-01 12:41] LABS: BASO % 0.1 % (0.0-1.0); EOS % 0.1 % (1.0-4.0); HEMOGLOBIN 8.1 g/dl (14.0-18.0); LYMPH # 0.5 10*3/uL (1.3-4.4); LYMPH % 3.4 % (27.0-41.0); MEAN CELL VOLUME 89.7 fl (80.0-94.0); MEAN CORPUSCULAR HGB 27.9 pg (27.0-31.0); MEAN CORPUSCULAR HGB CONC 31.2 g/dl (33.0-37.0); MEAN PLATELET VOLUME 9.5 fl (9.6-12.3); MONO # 1.4 10*3/uL (0.1-1.0); MONO % 10.5 % (3.0-9.0); NEUT # 11.6 10*3/uL (2.3-7.9); NEUT % 85.3 % (47.0-73.0); PLATELET COUNT AUTOMATED 380 10*3/uL (130-400); RED CELL DISTRI WIDTH 16.6 % (0-14.5); WHITE BLOOD COUNT 13.7 10*3/uL (4.8-10.8)
[2017-12-01 12:50] LABS: ACT PARTIAL THROMBO TIME 28.8 SECONDS (20.8-31.5); INTERNATIONAL NORM RATIO 1.2 (2.0-3.5)
[2017-12-01 12:59] LABS: ALBUMIN 2.1 gm/dl (3.1-4.5); CREATININE 2.46 mg/dL (0.70-1.30); POTASSIUM 5.2 mmol/L (3.5-5.1); TOTAL PROTEIN 8.3 gm/dL (6.4-8.2); TROPONIN I 0.026 ng/ml (<0.045)
[2017-12-01 13:30] VITALS: BP 148/78
[2017-12-01 14:20] VITALS: BP 136/82
[2017-12-01 14:55] VITALS: BP 129/53
[2017-12-01 16:14] VITALS: BP 143/48
[2017-12-01] MEDS ORDERED: HUMALOG MI100 UNIT/1 SQ (16:28)
[2017-12-01] MEDS ORDERED: TOPROL XL25 MG PO (16:29)
[2017-12-01] MEDS ORDERED: NORCO 5-325 TA1 EACH PO (16:29)
[2017-12-01] MEDS ORDERED: MIRALAX17 GM PO (16:31)
[2017-12-01 20:00] VITALS: BP 128/62
[2017-12-02] VITALS: BP 144/71
[2017-12-02 06:59] LABS: HEMOGLOBIN 7.6 g/dl (14.0-18.0); MEAN CELL VOLUME 87.6 fl (80.0-94.0); MEAN CORPUSCULAR HGB 27.7 pg (27.0-31.0); MEAN CORPUSCULAR HGB CONC 31.7 g/dl (33.0-37.0); MEAN PLATELET VOLUME 9.6 fl (9.6-12.3); PLATELET COUNT AUTOMATED 372 10*3/uL (130-400); RED BLOOD COUNT 2.74 10*6/uL (4.50-5.90); RED CELL DISTRI WIDTH 16.5 % (0-14.5)
[2017-12-02 07:32] LABS: POTASSIUM 5.6 mmol/L (3.5-5.1)
[2017-12-02 07:34] LABS: PLATELET SUFFICIENCY NORMAL (NORMAL); TOTAL CELLS COUNTED 100 #CELLS
[2017-12-02 07:55] LABS: ALBUMIN 1.9 gm/dl (3.1-4.5); CREATININE 2.23 mg/dL (0.70-1.30); PHOSPHOROUS 4.4 mg/dL (2.5-4.9); THYROID STIM HORMONE (HS) 1.06 uIU/ml (0.358-4.75); TOTAL PROTEIN 7.5 gm/dL (6.4-8.2)
[2017-12-02 08:00] VITALS: BP 134/69
[2017-12-02 08:14] LABS: VITAMIN D, 25-HYDROXY 14.4 ng/mL (30-100)
[2017-12-02 12:00] VITALS: BP 102/83
[2017-12-02] MEDS ORDERED: OXYCODONE HCL10 M1 PO (14:20)
[2017-12-02 16:00] VITALS: BP 134/53
[2017-12-02 20:00] VITALS: BP 117/48
[2017-12-03] VITALS: BP 144/56
[2017-12-03 06:58] LABS: HEMATOCRIT 25.1 % (42.0-52.0); HEMOGLOBIN 7.9 g/dl (14.0-18.0); MEAN CORPUSCULAR HGB CONC 31.5 g/dl (33.0-37.0); MEAN PLATELET VOLUME 9.8 fl (9.6-12.3); PLATELET COUNT AUTOMATED 400 10*3/uL (130-400); RED BLOOD COUNT 2.82 10*6/uL (4.50-5.90); RED CELL DISTRI WIDTH 16.6 % (0-14.5); WHITE BLOOD COUNT 22.6 10*3/uL (4.8-10.8)
[2017-12-03 07:08] LABS: CREATININE 2.19 mg/dL (0.70-1.30); POTASSIUM 5.3 mmol/L (3.5-5.1)
[2017-12-03 07:45] LABS: TOTAL CELLS COUNTED 100 #CELLS
[2017-12-03 07:46] LABS: OVALOCYTES FEW; PLATELET SUFFICIENCY NORMAL (NORMAL); POLYCHROMASIA SLIGHT
[2017-12-03 08:00] VITALS: BP 139/73
[2017-12-03 12:00] VITALS: BP 131/68
[2017-12-03 16:00] VITALS: BP 125/58
[2017-12-03 20:00] VITALS: BP 139/58
[2017-12-04] VITALS (9 sets, daily range): BP systolic 117–153; BP diastolic 61–77
[2017-12-04 06:26] LABS: HEMOGLOBIN 7.6 g/dl (14.0-18.0); MEAN CELL VOLUME 88.2 fl (80.0-94.0); MEAN CORPUSCULAR HGB 27.9 pg (27.0-31.0); MEAN CORPUSCULAR HGB CONC 31.7 g/dl (33.0-37.0); MEAN PLATELET VOLUME 9.8 fl (9.6-12.3); PLATELET COUNT AUTOMATED 338 10*3/uL (130-400); RED BLOOD COUNT 2.72 10*6/uL (4.50-5.90); RED CELL DISTRI WIDTH 16.6 % (0-14.5); WHITE BLOOD COUNT 14.4 10*3/uL (4.8-10.8)
[2017-12-04 06:36] LABS: INTERNATIONAL NORM RATIO 1.2 (2.0-3.5)
[2017-12-04 06:43] LABS: CREATININE 2.28 mg/dL (0.70-1.30)
[2017-12-04 06:50] LABS: PLATELET SUFFICIENCY NORMAL (NORMAL); TOTAL CELLS COUNTED 100 #CELLS
[2017-12-04 06:51] LABS: BURR CELLS FEW; SCHISTOCYTES FEW
[2017-12-04] MEDS ORDERED: HEPARIN SO5000 UNIT/ SC (15:58)
[2017-12-04] MEDS ORDERED: Vitamin D PO (15:58)
[2017-12-04] MEDS ORDERED: VANCOMYCIN1.5 GM/500 IV (15:59)
[2017-12-05] VITALS: BP 140/81
[2017-12-05 08:00] VITALS: BP 149/78
[2017-12-05 09:37] LABS: HEMATOCRIT 25.5 % (42.0-52.0); HEMOGLOBIN 8.1 g/dl (14.0-18.0); MEAN CELL VOLUME 86.4 fl (80.0-94.0); MEAN CORPUSCULAR HGB 27.5 pg (27.0-31.0); MEAN CORPUSCULAR HGB CONC 31.8 g/dl (33.0-37.0); MEAN PLATELET VOLUME 9.8 fl (9.6-12.3); PLATELET COUNT AUTOMATED 339 10*3/uL (130-400); RED BLOOD COUNT 2.95 10*6/uL (4.50-5.90); RED CELL DISTRI WIDTH 16.5 % (0-14.5); WHITE BLOOD COUNT 13.5 10*3/uL (4.8-10.8)
[2017-12-05 10:00] LABS: CREATININE 2.61 mg/dL (0.70-1.30)
[2017-12-05 10:10] LABS: POTASSIUM 6.2 mmol/L (3.5-5.1)
[2017-12-05 10:12] LABS: TOTAL CELLS COUNTED 100 #CELLS
[2017-12-05 10:13] LABS: PLATELET SUFFICIENCY NORMAL (NORMAL)
[2017-12-05 12:00] VITALS: BP 134/70
[2017-12-05 12:29] LABS: ABG HCO3 16.6 mmol/l (22-26); ABG O2 SATURATION 98.4 % (95-97); ARTERIAL BLOOD GAS PCO2 31.2 mmHg (35-45); ARTERIAL BLOOD GAS PH 7.343 (7.35-7.45)
[2017-12-05 12:30] LABS: ABG BASE EXCESS -7.9 mmol/L (-2.0-2.0)
[2017-12-05 15:05] LABS: CREATININE 2.83 mg/dL (0.70-1.30); POTASSIUM 5.9 mmol/L (3.5-5.1)
[2017-12-05 16:00] VITALS: BP 133/74
[2017-12-05 18:12] LABS: CREATININE 2.69 mg/dL (0.70-1.30)
[2017-12-05 18:15] LABS: POTASSIUM 6.1 mmol/L (3.5-5.1)
[2017-12-05 20:00] VITALS: BP 136/80
[2017-12-05 22:48] LABS: CREATININE 2.59 mg/dL (0.70-1.30)
[2017-12-05 22:54] LABS: POTASSIUM 6.2 mmol/L (3.5-5.1)
[2017-12-06] VITALS: BP 124/65
[2017-12-06 02:15] LABS: CREATININE 2.59 mg/dL (0.70-1.30)
[2017-12-06 02:16] LABS: POTASSIUM 6.2 mmol/L (3.5-5.1)
[2017-12-06 06:13] LABS: CREATININE 2.53 mg/dL (0.70-1.30); POTASSIUM 5.9 mmol/L (3.5-5.1)
[2017-12-06 08:00] VITALS: BP 125/67
[2017-12-06 10:50] LABS: CREATININE 2.58 mg/dL (0.70-1.30); POTASSIUM 5.5 mmol/L (3.5-5.1)
[2017-12-06 12:00] VITALS: BP 124/65
[2017-12-06 16:00] VITALS: BP 135/63
[2017-12-06 20:00] VITALS: BP 135/45
[2017-12-07] VITALS: BP 135/56
[2017-12-07 04:00] VITALS: BP 120/61
[2017-12-07 05:10] LABS: HEMATOCRIT 27.1 % (42.0-52.0); HEMOGLOBIN 8.3 g/dl (14.0-18.0); MEAN CELL VOLUME 88.6 fl (80.0-94.0); MEAN CORPUSCULAR HGB 27.1 pg (27.0-31.0); MEAN CORPUSCULAR HGB CONC 30.6 g/dl (33.0-37.0); MEAN PLATELET VOLUME 9.9 fl (9.6-12.3); PLATELET COUNT AUTOMATED 367 10*3/uL (130-400); RED BLOOD COUNT 3.06 10*6/uL (4.50-5.90); RED CELL DISTRI WIDTH 16.8 % (0-14.5); WHITE BLOOD COUNT 15.8 10*3/uL (4.8-10.8)
[2017-12-07 05:21] LABS: CREATININE 2.43 mg/dL (0.70-1.30); POTASSIUM 5.4 mmol/L (3.5-5.1)
[2017-12-07 05:43] LABS: ACANTHOCYTES FEW; BURR CELLS MODERATE; PLATELET SUFFICIENCY NORMAL (NORMAL); TOTAL CELLS COUNTED 100 #CELLS
[2017-12-07 08:00] VITALS: BP 123/72
[2017-12-07 12:00] VITALS: BP 129/62
[2017-12-07 16:02] VITALS: BP 91/32
[2017-12-07 20:00] VITALS: BP 102/42
[2017-12-08] VITALS: BP 128/39
[2017-12-08 04:00] VITALS: BP 101/53
[2017-12-08 05:59] LABS: HEMATOCRIT 27.6 % (42.0-52.0); HEMOGLOBIN 8.6 g/dl (14.0-18.0); MEAN CELL VOLUME 88.7 fl (80.0-94.0); MEAN CORPUSCULAR HGB 27.7 pg (27.0-31.0); MEAN CORPUSCULAR HGB CONC 31.2 g/dl (33.0-37.0); MEAN PLATELET VOLUME 9.9 fl (9.6-12.3); PLATELET COUNT AUTOMATED 348 10*3/uL (130-400); RED BLOOD COUNT 3.11 10*6/uL (4.50-5.90); RED CELL DISTRI WIDTH 17.1 % (0-14.5); WHITE BLOOD COUNT 14.9 10*3/uL (4.8-10.8)
[2017-12-08 06:15] LABS: POTASSIUM 5.3 mmol/L (3.5-5.1)
[2017-12-08 06:23] LABS: CREATININE 2.11 mg/dL (0.70-1.30)
[2017-12-08 06:59] LABS: ATYPICAL LYMPHS 1 % (0-0); BURR CELLS FEW; PLATELET SUFFICIENCY NORMAL (NORMAL); POLYCHROMASIA SLIGHT; TOTAL CELLS COUNTED 100 #CELLS
[2017-12-08 08:00] VITALS: BP 123/58
[2017-12-08 10:42] LABS: ABG BASE EXCESS -4.2 mmol/L (-2.0-2.0); ABG HCO3 20.7 mmol/l (22-26); ABG O2 SATURATION 98.9 % (95-97); ARTERIAL BLOOD GAS PCO2 39.7 mmHg (35-45); ARTERIAL BLOOD GAS PH 7.337 (7.35-7.45)
[2017-12-08 12:00] VITALS: BP 124/58
[2017-12-08 16:00] VITALS: BP 133/66
[2017-12-08 18:35] VITALS: BP 138/68
== END 2017-12-08 18:45 | disposition short-term general hospital (02) | DRG 871 ==
LOC: ED 11:19 → EDHOLD 13:31 → 5E 13:31 → ICCU 12-05 10:19
PROVIDERS: Emergency Medicine; Family Medicine; Internal Medicine Cardiovascular Disease; Internal Medicine Critical Care Medicine; Student in an Organized Health Care Education/Training Program
DX: A41.02 Sepsis due to Methicillin resistant Staphylococcus aureus (principal); E11.10 Type 2 diabetes mellitus with ketoacidosis without coma; N17.0 Acute kidney failure with tubular necrosis; E43 Unspecified severe protein-calorie malnutrition; I33.0 Acute and subacute infective endocarditis; J18.9 Pneumonia, unspecified organism; I27.20 Pulmonary hypertension, unspecified; E83.41 Hypermagnesemia; N18.4 Chronic kidney disease, stage 4 (severe); I13.0 Hypertensive heart and chronic kidney disease with heart failure and stage 1 through stage 4 chronic kidney disease, or unspecified chronic kidney disease; I50.42 Chronic combined systolic (congestive) and diastolic (congestive) heart failure; I42.9 Cardiomyopathy, unspecified; L97.418 Non-pressure chronic ulcer of right heel and midfoot with other specified severity; E87.1 Hypo-osmolality and hyponatremia; J44.0 Chronic obstructive pulmonary disease with (acute) lower respiratory infection; J44.1 Chronic obstructive pulmonary disease with (acute) exacerbation; M86.661 Other chronic osteomyelitis, right tibia and fibula; E11.22 Type 2 diabetes mellitus with diabetic chronic kidney disease; E11.621 Type 2 diabetes mellitus with foot ulcer; E11.51 Type 2 diabetes mellitus with diabetic peripheral angiopathy without gangrene; E11.65 Type 2 diabetes mellitus with hyperglycemia; D63.1 Anemia in chronic kidney disease; R65.20 Severe sepsis without septic shock; I25.10 Atherosclerotic heart disease of native coronary artery without angina pectoris; K21.9 Gastro-esophageal reflux disease without esophagitis; E78.5 Hyperlipidemia, unspecified; E87.5 Hyperkalemia; E66.09 Other obesity due to excess calories; J20.9 Acute bronchitis, unspecified; E03.9 Hypothyroidism, unspecified; R59.1 Generalized enlarged lymph nodes; T38.0X5A Adverse effect of glucocorticoids and synthetic analogues, initial encounter; Y92.89 Other specified places as the place of occurrence of the external cause; Z90.79 Acquired absence of other genital organ(s); Z68.31 Body mass index [BMI] 31.0-31.9, adult; Z86.718 Personal history of other venous thrombosis and embolism; Z95.1 Presence of aortocoronary bypass graft; Z87.891 Personal history of nicotine dependence; Z79.02 Long term (current) use of antithrombotics/antiplatelets; Z79.82 Long term (current) use of aspirin; Z79.84 Long term (current) use of oral hypoglycemic drugs; Z79.899 Other long term (current) drug therapy; Z88.7 Allergy status to serum and vaccine; Z88.8 Allergy status to other drugs, medicaments and biological substances; Z91.013 Allergy to seafood; Z80.0 Family history of malignant neoplasm of digestive organs; Z82.49 Family history of ischemic heart disease and other diseases of the circulatory system

== ENCOUNTER → 2017-12-01 | Outpatient (CLI) | payer MEDICARE ==
[~2017-12-01] MED LIST changes: +GOOD NEIGHBOR150 MG PO; +HEPARIN SO5000 UNIT/ SC; +HUMALOG MI100 UNIT/1 SQ; +LEVOFLOXACIN500 MG PO; +MIRALAX17 GM PO; +OXYCODONE HCL10 M1 PO; +TOPROL XL25 MG PO; +VANCOMYCIN1.5 GM/500 IV; +Vitamin D PO
[2017-12-01 11:51] LABS: CREATININE 2.58 mg/dL (0.70-1.30)
== END | disposition home or self-care (01) ==
LOC: LAB 10:58
PROVIDERS: Radiology Diagnostic Radiology
DX: Z01.812 Encounter for preprocedural laboratory examination (principal)